=== PATIENT | female | born 1950 | race Caucasian/White ===

== ENCOUNTER → 2016-12-30 | Outpatient (CLI) | payer MEDICARE, BC ==
[2016-01-29 11:00] VITALS: BP 116/60
[~2016-12-30] MED LIST: ASCO100T4 PO; ASPI-482 PO; ASPI325T8 PO; ATOR40TA59 PO; CALC500T30 PO; CHOL10002 PO; CLIN150C14 PO; CLOP75TA57 PO; DOXY100T PO; DOXY50CA PO; HYDR-2762 PO; LISI-338 PO; LORA5TAB7 PO; METO25TA4 PO; MULT1TAB97 PO; OMEG300C PO; OXYC-323 PO; PANT40TA5 PO; WARF-78 PO
[2016-12-30 08:00] LABS: ALBUMIN 3.5 g/dL (3.4-5.0); CALCIUM 9.2 mg/dL (8.5-10.1); CREATININE 0.9 mg/dL (0.6-1.0); DIRECT BILIRUBIN 0.2 mg/dL (0.0-0.2); GFR 62.8; POTASSIUM 4.4 mmol/L (3.5-5.1); TOTAL BILIRUBIN 0.5 mg/dL (0.2-1.0); TOTAL PROTEIN 6.5 g/dL (6.4-8.2)
[2016-12-30 08:02] LABS: CHOLESTEROL/HDL RATIO 3.2
== END | disposition home or self-care (01) ==
LOC: LAB 07:15
PROVIDERS: ATTEND Internal Medicine Cardiovascular Disease
DX: I25.10 Atherosclerotic heart disease of native coronary artery without angina pectoris (principal); I10 Essential (primary) hypertension
CPT/HCPCS: 36415; 80048; 80061; 80076

== ENCOUNTER 2017-09-20 15:50 | Inpatient (IN) | payer MEDICARE, BC ==
[2017-09-20 16:23] LABS: ADD MAN DIFF? NO
[2017-09-20 16:25] LABS: BASO # 0.1 x10^3/uL (0.0-0.2); BASO % 1 % (0-3); EOS # 0.1 x10^3/uL (0.0-0.7); EOS % 1 % (0-3); HEMATOCRIT 34.6 % (36.0-47.0); HEMOGLOBIN 11.6 g/dL (12.0-15.5); LYMPH # 1.4 x10^3/uL (1.0-4.8); LYMPH % 12 % (24-48); MEAN CORPUSCULAR HEMOGLOBIN 31 pg (25-35); MEAN CORPUSCULAR HGB CONC 34 g/dL (31-37); MEAN CORPUSCULAR VOLUME 92 fL (79-100); MONO # 0.6 x10^3/uL (0.0-1.1); MONO % 5 % (0-9); NEUT # 9.9 x10^3uL (1.8-7.7); NEUT % 81 % (31-73); PLATELET COUNT 239 x10^3/uL (140-400); RED BLOOD COUNT 3.77 x10^6/uL (3.50-5.40); RED CELL DISTRIBUTION WIDTH 13.8 % (11.5-14.5); WHITE BLOOD COUNT 12.2 x10^3/uL (4.0-11.0)
[2017-09-20] MEDS: ONDANSETRON PF 4 MG/2 ML VIAL. IV ×2 (16:26→17:02)
[2017-09-20] MEDS: fentaNYL PF VIAL 100 MCG/2 ML VIAL IV (16:28)
[2017-09-20 16:32] LABS: ANION GAP 13 (6-14); BLOOD UREA NITROGEN 20 mg/dL (7-20); CALCIUM 9.4 mg/dL (8.5-10.1); CARBON DIOXIDE 26 mmol/L (21-32); CHLORIDE 103 mmol/L (98-107); CREATININE 1.1 mg/dL (0.6-1.0); GFR 49.8; GLUCOSE 161 mg/dL (70-99); POTASSIUM 3.4 mmol/L (3.5-5.1); SODIUM 142 mmol/L (136-145)
[2017-09-20] MEDS ORDERED: ACETAMINOPHEN 325 MG TABLET. PO (17:00)
[2017-09-20] MEDS ORDERED: MORPHINE SULFATE 4 MG/ML DISP.SYRIN. IV (17:00)
[2017-09-20] MEDS ORDERED: DEXTROSE 50% 25 GM / 50ML DISP.SYRIN. IV (17:00)
[2017-09-20] MEDS ORDERED: oxyCODONE/APAP 5/325 1 TAB TABLET PO (17:00)
[2017-09-20] MEDS ORDERED: ONDANSETRON PF 4 MG/2 ML VIAL. IV (17:00)
[2017-09-20] MEDS ORDERED: DOCUSATE SODIUM 100 MG CAPSULE. PO (17:00)
[2017-09-20] MEDS ORDERED: traMADol 50 MG TABLET PO (17:00)
[2017-09-20] MEDS ORDERED: INSULIN ASPART 300 UNITS/3 ML INSULN.PEN SQ (17:00)
[2017-09-20] MEDS ORDERED: hydrALAZINE 20 MG/ML VIAL. IVP (17:00)
[2017-09-20] MEDS: MORPHINE SULFATE 4 MG/ML DISP.SYRIN. IV ×2 (17:05→22:52)
[2017-09-20] MEDS: MORPHINE SULFATE 10 MG/ML VIAL. IV (18:29)
[2017-09-20] MEDS: HEPARIN PF for SUB-Q USE 5,000 UNIT/0.5 ML VIAL. SQ (22:00)
[2017-09-21] MEDS: MORPHINE SULFATE 4 MG/ML DISP.SYRIN. IV ×4 (04:01→15:33)
[2017-09-21] MEDS: HEPARIN PF for SUB-Q USE 5,000 UNIT/0.5 ML VIAL. SQ ×2 (05:04→14:00)
[2017-09-21 06:36] LABS: ADD MAN DIFF? NO
[2017-09-21 06:47] LABS: BASO % 0 % (0-3); EOS % 0 % (0-3); HEMATOCRIT 30.8 % (36.0-47.0); HEMOGLOBIN 10.4 g/dL (12.0-15.5); LYMPH # 0.8 x10^3/uL (1.0-4.8); LYMPH % 8 % (24-48); MEAN CORPUSCULAR HEMOGLOBIN 32 pg (25-35); MEAN CORPUSCULAR HGB CONC 34 g/dL (31-37); MEAN CORPUSCULAR VOLUME 93 fL (79-100); MONO # 0.9 x10^3/uL (0.0-1.1); MONO % 8 % (0-9); NEUT # 8.8 x10^3uL (1.8-7.7); NEUT % 83 % (31-73); PLATELET COUNT 239 x10^3/uL (140-400); RED CELL DISTRIBUTION WIDTH 13.5 % (11.5-14.5); WHITE BLOOD COUNT 10.6 x10^3/uL (4.0-11.0)
[2017-09-21 07:11] LABS: ALBUMIN 3.5 g/dL (3.4-5.0); ALK PHOS 83 U/L (46-116); ALT (SGPT) 23 U/L (14-59); ANION GAP 11 (6-14); AST (SGOT) 18 U/L (15-37); BLOOD UREA NITROGEN 31 mg/dL (7-20); BUN/CREATININE RATIO 18 (6-20); CALCIUM 8.7 mg/dL (8.5-10.1); CARBON DIOXIDE 27 mmol/L (21-32); CHLORIDE 103 mmol/L (98-107); CREATININE 1.7 mg/dL (0.6-1.0); GFR 30.2; GLUCOSE 157 mg/dL (70-99); SODIUM 141 mmol/L (136-145); TOTAL BILIRUBIN 0.6 mg/dL (0.2-1.0)
[2017-09-21 07:12] LABS: POTASSIUM 4.3 mmol/L (3.5-5.1)
[2017-09-21] MEDS: PANTOPRAZOLE 40 MG TABLET.DR. PO (11:30)
[2017-09-21] MEDS ORDERED: oxyCODONE/APAP 5/325 1 TAB TABLET PO (11:30)
[2017-09-21] MEDS: CALCIUM CARBONATE 500 MG TABLET PO (12:00)
[2017-09-21] MEDS: MULTIVITAMIN with MINERAL TABLET. PO (12:00)
[2017-09-21] MEDS: ASPIRIN 325 MG TABLET PO ×2 (12:00→21:00)
[2017-09-21] MEDS: CHOLECALCIFEROL (VITAMIN D3) 1,000 UNIT TABLET PO (12:00)
[2017-09-21] MEDS: ASCORBIC ACID 500 MG TABLET PO (12:00)
[2017-09-21] MEDS: CLOPIDOGREL BISULFATE 75 MG TABLET PO (12:00)
[2017-09-21] MEDS: IV NORMAL SALINE 1000ML BAG 1,000 ML IV (12:35)
[2017-09-21] MEDS ORDERED: BUPIVACAINE-EPI 0.25%-1:200000 50 ML VIAL. (15:33)
[2017-09-21] MEDS: IV RINGERS,LACTATED 1000ML 1,000 ML IV (16:28)
[2017-09-21] MEDS ORDERED: fentaNYL PF VIAL 100 MCG/2 ML VIAL IV ×3 (16:30→19:15)
[2017-09-21] MEDS ORDERED: PROCHLORPERAZINE 10 MG/2 ML VIAL. IV (16:30)
[2017-09-21] MEDS ORDERED: ONDANSETRON PF 4 MG/2 ML VIAL. IV (16:30)
[2017-09-21] MEDS ORDERED: LIDOCAINE 1% PF 2 ML VIAL. ID (16:30)
[2017-09-21] MEDS ORDERED: ceFAZolin SODIUM 3 GM in IV DEXTROSE 5% 100 ML IV (16:35)
[2017-09-21] MEDS ORDERED: fentaNYL PF VIAL 100 MCG/2 ML VIAL (16:44)
[2017-09-21] MEDS ORDERED: SUCCINYLCHOLINE 200 MG/10 ML VIAL. (16:44)
[2017-09-21] MEDS ORDERED: SEVOFLURANE 31 TO 60 MINUTES. IH (16:45)
[2017-09-21] MEDS ORDERED: DEXAMETHASONE SOD PHOS 20 MG/5 ML VIAL. (16:45)
[2017-09-21] MEDS ORDERED: MORPHINE SULFATE 4 MG/ML DISP.SYRIN. IV ×3 (16:45→19:15)
[2017-09-21] MEDS ORDERED: ONDANSETRON PF 4 MG/2 ML VIAL. (16:45)
[2017-09-21] MEDS ORDERED: PROPOFOL 20 ML IV (16:49)
[2017-09-21] MEDS ORDERED: FAMOTIDINE 20 MG/2 ML VIAL (16:49)
[2017-09-21] MEDS ORDERED: PHENYLEPHRINE in 0.9% NACL PF 1 MG/10 ML SYRINGE. IV (17:13)
[2017-09-21] MEDS ORDERED: SEVOFLURANE 61 TO 120 MINUTES. IH (17:13)
[2017-09-21] MEDS: ceFAZolin SODIUM 3 GM in IV DEXTROSE 5% 100 ML IV (17:22)
[2017-09-21] MEDS: BUPIVACAINE-EPI 0.25%-1:200000 50 ML VIAL. INJ (17:32)
[2017-09-21] MEDS ORDERED: oxyCODONE IR 5 MG TABLET PO (19:15)
[2017-09-21] MEDS ORDERED: DEXTROSE 50% 25 GM / 50ML DISP.SYRIN. IV (19:15)
[2017-09-21] MEDS: ONDANSETRON PF 4 MG/2 ML VIAL. IV (20:17)
[2017-09-21] MEDS: ATORVASTATIN CALCIUM 40 MG TABLET. PO (21:00)
[2017-09-21 21:03] LABS: POC GLUCOSE 175 mg/dL (70-99)
[2017-09-22] MEDS: ceFAZolin SODIUM 3 GM in IV DEXTROSE 5% 100 ML IV ×3 (00:10→15:44)
[2017-09-22] MEDS: IV NORMAL SALINE 1000ML BAG 1,000 ML IV ×3 (00:10→16:01)
[2017-09-22] MEDS: IV NORMAL SALINE 500ML BAG 500 ML IV ×2 (00:11→08:45)
[2017-09-22 05:41] LABS: BASO % 0 % (0-3); EOS % 0 % (0-3); HEMATOCRIT 25.6 % (36.0-47.0); HEMOGLOBIN 8.5 g/dL (12.0-15.5); LYMPH # 0.8 x10^3/uL (1.0-4.8); LYMPH % 6 % (24-48); MEAN CORPUSCULAR HEMOGLOBIN 31 pg (25-35); MEAN CORPUSCULAR HGB CONC 33 g/dL (31-37); MEAN CORPUSCULAR VOLUME 93 fL (79-100); MONO # 0.8 x10^3/uL (0.0-1.1); MONO % 6 % (0-9); NEUT % 87 % (31-73); PLATELET COUNT 189 x10^3/uL (140-400); RED BLOOD COUNT 2.75 x10^6/uL (3.50-5.40); RED CELL DISTRIBUTION WIDTH 13.5 % (11.5-14.5); WHITE BLOOD COUNT 12.7 x10^3/uL (4.0-11.0)
[2017-09-22 05:51] LABS: ANION GAP 10 (6-14); BLOOD UREA NITROGEN 48 mg/dL (7-20); CALCIUM 7.8 mg/dL (8.5-10.1); CARBON DIOXIDE 25 mmol/L (21-32); CHLORIDE 104 mmol/L (98-107); CREATININE 2.2 mg/dL (0.6-1.0); GFR 22.4; GLUCOSE 172 mg/dL (70-99); POTASSIUM 4.4 mmol/L (3.5-5.1); SODIUM 139 mmol/L (136-145)
[2017-09-22 05:59] LABS: ADD MAN DIFF? YES
[2017-09-22] MEDS ORDERED: MAGNESIUM HYDROXIDE 2,400 MG/30 ML ORAL.SUSP. PO (06:00)
[2017-09-22] MEDS ORDERED: METOPROLOL TART IMMED RELEASE 25 MG TABLET. PO (09:00)
[2017-09-22 09:01] LABS: % LYMPHS 3 % (24-48); % MONOS 7 % (0-10); % SEGS 90 % (35-66); PLT ESTIMATE ADEQUATE (ADEQUATE)
[2017-09-22 09:02] LABS: HYPOCHROMIA SLIGHT
[2017-09-22] MEDS: CLOPIDOGREL BISULFATE 75 MG TABLET PO (09:46)
[2017-09-22] MEDS: PANTOPRAZOLE 40 MG TABLET.DR. PO (09:47)
[2017-09-22] MEDS: MULTIVITAMIN with MINERAL TABLET. PO (09:47)
[2017-09-22] MEDS: SENNOSIDES/DOCUSATE 8.6/50MG TABLET. PO (09:47)
[2017-09-22] MEDS: CHOLECALCIFEROL (VITAMIN D3) 1,000 UNIT TABLET PO (09:47)
[2017-09-22] MEDS: ASPIRIN 325 MG TABLET PO ×2 (09:47→21:35)
[2017-09-22] MEDS: CALCIUM CARBONATE 500 MG TABLET PO (09:47)
[2017-09-22] MEDS: ASCORBIC ACID 500 MG TABLET PO (09:48)
[2017-09-22] MEDS ORDERED: CALCIUM CARBONATE 500 MG TAB.CHEW PO (12:45)
[2017-09-22] MEDS: CALCIUM CARBONATE 500 MG TAB.CHEW PO (12:51)
[2017-09-22] MEDS: HYDROcodone/APAP 7.5/325MG 1 TAB TABLET PO ×3 (12:52→21:35)
[2017-09-22 13:26] LABS: BILIRUBIN,URINE NEGATIVE (NEG); CLARITY,URINE CLEAR; COLOR,URINE YELLOW; GLUCOSE,URINE NEGATIVE (NEG); NITRITE,URINE NEGATIVE (NEG); PH,URINE 5.5; PROTEIN,URINE NEGATIVE (NEG-TRACE); UROBILINOGEN,URINE 0.2 mg/dL (0.2 mg/dL)
[2017-09-22 13:37] LABS: BACTERIA,URINE FEW /HPF (0-FEW); SQUAMOUS EPITHELIAL CELL,UR FEW /LPF
[2017-09-22 13:38] LABS: YEAST,URINE PRESENT /HPF
[2017-09-22 14:30] LABS: LACTIC ACID 1.8 mmol/L (0.4-2.0)
[2017-09-22 14:33] LABS: TROPONINI < 0.017 ng/mL (0.000-0.055)
[2017-09-22] MEDS ORDERED: BISACODYL 10 MG SUPP.RECT. PR (16:00)
[2017-09-22] MEDS: ATORVASTATIN CALCIUM 40 MG TABLET. PO (21:35)
[2017-09-23] MEDS: IV NORMAL SALINE 1000ML BAG 1,000 ML IV ×4 (03:18→22:13)
[2017-09-23] MEDS: HYDROcodone/APAP 7.5/325MG 1 TAB TABLET PO ×2 (03:21→09:25)
[2017-09-23 05:21] LABS: ADD MAN DIFF? NO
[2017-09-23 05:30] LABS: BASO # 0.1 x10^3/uL (0.0-0.2); BASO % 1 % (0-3); EOS # 0.1 x10^3/uL (0.0-0.7); EOS % 1 % (0-3); HEMOGLOBIN 7.1 g/dL (12.0-15.5); LYMPH # 1.6 x10^3/uL (1.0-4.8); LYMPH % 16 % (24-48); MEAN CORPUSCULAR HEMOGLOBIN 32 pg (25-35); MEAN CORPUSCULAR HGB CONC 35 g/dL (31-37); MEAN CORPUSCULAR VOLUME 93 fL (79-100); MONO # 0.9 x10^3/uL (0.0-1.1); MONO % 9 % (0-9); NEUT # 7.2 x10^3uL (1.8-7.7); NEUT % 73 % (31-73); PLATELET COUNT 150 x10^3/uL (140-400); RED CELL DISTRIBUTION WIDTH 13.8 % (11.5-14.5); WHITE BLOOD COUNT 9.8 x10^3/uL (4.0-11.0)
[2017-09-23 05:37] LABS: HEMATOCRIT 20.4 % (36.0-47.0)
[2017-09-23 05:38] LABS: ANION GAP 8 (6-14); BLOOD UREA NITROGEN 53 mg/dL (7-20); CALCIUM 7.5 mg/dL (8.5-10.1); CARBON DIOXIDE 25 mmol/L (21-32); CHLORIDE 105 mmol/L (98-107); CREATININE 1.8 mg/dL (0.6-1.0); GFR 28.2; GLUCOSE 140 mg/dL (70-99); POTASSIUM 3.7 mmol/L (3.5-5.1); SODIUM 138 mmol/L (136-145)
[2017-09-23] MEDS: CLOPIDOGREL BISULFATE 75 MG TABLET PO (09:03)
[2017-09-23] MEDS: ASPIRIN 325 MG TABLET PO ×2 (09:03→20:57)
[2017-09-23] MEDS: CALCIUM CARBONATE 500 MG TABLET PO (09:03)
[2017-09-23] MEDS: MULTIVITAMIN with MINERAL TABLET. PO (09:04)
[2017-09-23] MEDS: ASCORBIC ACID 500 MG TABLET PO (09:04)
[2017-09-23] MEDS: SENNOSIDES/DOCUSATE 8.6/50MG TABLET. PO (09:04)
[2017-09-23] MEDS: PANTOPRAZOLE 40 MG TABLET.DR. PO (09:04)
[2017-09-23] MEDS: CHOLECALCIFEROL (VITAMIN D3) 1,000 UNIT TABLET PO (09:05)
[2017-09-23] MEDS: IRON SUCROSE COMPLEX 200 MG in IV NORMAL SALINE 100ML 100 ML IV (13:01)
[2017-09-23] MEDS: ATORVASTATIN CALCIUM 40 MG TABLET. PO (20:57)
[2017-09-24 05:32] LABS: ADD MAN DIFF? NO
[2017-09-24 05:53] LABS: BASO # 0.1 x10^3/uL (0.0-0.2); BASO % 1 % (0-3); EOS # 0.2 x10^3/uL (0.0-0.7); EOS % 3 % (0-3); LYMPH # 1.3 x10^3/uL (1.0-4.8); LYMPH % 15 % (24-48); MEAN CORPUSCULAR HEMOGLOBIN 32 pg (25-35); MEAN CORPUSCULAR HGB CONC 33 g/dL (31-37); MEAN CORPUSCULAR VOLUME 95 fL (79-100); MONO # 0.8 x10^3/uL (0.0-1.1); MONO % 9 % (0-9); NEUT # 6.3 x10^3uL (1.8-7.7); NEUT % 73 % (31-73); PLATELET COUNT 152 x10^3/uL (140-400); RED BLOOD COUNT 2.14 x10^6/uL (3.50-5.40); WHITE BLOOD COUNT 8.7 x10^3/uL (4.0-11.0)
[2017-09-24 05:57] LABS: HEMATOCRIT 20.4 % (36.0-47.0); HEMOGLOBIN 6.8 g/dL (12.0-15.5)
[2017-09-24 05:59] LABS: ANION GAP 11 (6-14); BLOOD UREA NITROGEN 45 mg/dL (7-20); CALCIUM 7.9 mg/dL (8.5-10.1); CARBON DIOXIDE 23 mmol/L (21-32); CHLORIDE 109 mmol/L (98-107); CREATININE 1.3 mg/dL (0.6-1.0); GFR 41.1; GLUCOSE 118 mg/dL (70-99); POTASSIUM 3.9 mmol/L (3.5-5.1); SODIUM 143 mmol/L (136-145)
[2017-09-24] MEDS: HYDROcodone/APAP 7.5/325MG 1 TAB TABLET PO ×3 (06:18→19:37)
[2017-09-24] MEDS: IV NORMAL SALINE 1000ML BAG 1,000 ML IV (06:19)
[2017-09-24 12:11] LABS: IMMEDIATE SPIN CROSSMATCH 1 1
[2017-09-24] MEDS: MULTIVITAMIN with MINERAL TABLET. PO (12:27)
[2017-09-24] MEDS: CALCIUM CARBONATE 500 MG TABLET PO (12:27)
[2017-09-24] MEDS: PANTOPRAZOLE 40 MG TABLET.DR. PO (12:27)
[2017-09-24] MEDS: ASCORBIC ACID 500 MG TABLET PO (12:27)
[2017-09-24] MEDS: CHOLECALCIFEROL (VITAMIN D3) 5,000 UNIT CAPSULE PO (12:27)
[2017-09-24] MEDS: CLOPIDOGREL BISULFATE 75 MG TABLET PO (12:27)
[2017-09-24] MEDS: ASPIRIN 325 MG TABLET PO ×2 (12:27→21:33)
[2017-09-24] MEDS: SENNOSIDES/DOCUSATE 8.6/50MG TABLET. PO (12:27)
[2017-09-24] MEDS: FERROUS SULFATE 325 MG TABLET. PO (12:28)
[2017-09-24 16:58] LABS: HEMATOCRIT 22.2 % (36.0-47.0)
[2017-09-24 16:58] LABS: HEMOGLOBIN 7.5 g/dL (12.0-15.5)
[2017-09-24] MEDS: ATORVASTATIN CALCIUM 40 MG TABLET. PO (21:33)
[2017-09-25] MEDS: HYDROcodone/APAP 7.5/325MG 1 TAB TABLET PO ×3 (04:40→21:09)
[2017-09-25 05:27] LABS: ADD MAN DIFF? NO
[2017-09-25 05:41] LABS: BASO # 0.1 x10^3/uL (0.0-0.2); BASO % 1 % (0-3); EOS # 0.3 x10^3/uL (0.0-0.7); EOS % 4 % (0-3); HEMATOCRIT 21.6 % (36.0-47.0); HEMOGLOBIN 7.2 g/dL (12.0-15.5); LYMPH # 1.6 x10^3/uL (1.0-4.8); LYMPH % 19 % (24-48); MEAN CORPUSCULAR HEMOGLOBIN 31 pg (25-35); MEAN CORPUSCULAR HGB CONC 33 g/dL (31-37); MEAN CORPUSCULAR VOLUME 93 fL (79-100); MONO # 0.8 x10^3/uL (0.0-1.1); MONO % 9 % (0-9); NEUT # 5.9 x10^3uL (1.8-7.7); NEUT % 67 % (31-73); PLATELET COUNT 168 x10^3/uL (140-400); RED BLOOD COUNT 2.33 x10^6/uL (3.50-5.40); RED CELL DISTRIBUTION WIDTH 14.8 % (11.5-14.5); WHITE BLOOD COUNT 8.8 x10^3/uL (4.0-11.0)
[2017-09-25 06:07] LABS: ANION GAP 9 (6-14); BLOOD UREA NITROGEN 42 mg/dL (7-20); CALCIUM 8.1 mg/dL (8.5-10.1); CARBON DIOXIDE 25 mmol/L (21-32); CHLORIDE 109 mmol/L (98-107); CREATININE 1.1 mg/dL (0.6-1.0); GFR 49.8; GLUCOSE 121 mg/dL (70-99); POTASSIUM 3.8 mmol/L (3.5-5.1); SODIUM 143 mmol/L (136-145)
[2017-09-25] MEDS: ASPIRIN 325 MG TABLET PO ×2 (09:30→21:08)
[2017-09-25] MEDS: CHOLECALCIFEROL (VITAMIN D3) 5,000 UNIT CAPSULE PO (09:30)
[2017-09-25] MEDS: PANTOPRAZOLE 40 MG TABLET.DR. PO (09:30)
[2017-09-25] MEDS: CLOPIDOGREL BISULFATE 75 MG TABLET PO (09:30)
[2017-09-25] MEDS: SENNOSIDES/DOCUSATE 8.6/50MG TABLET. PO (09:30)
[2017-09-25] MEDS: MULTIVITAMIN with MINERAL TABLET. PO (09:31)
[2017-09-25] MEDS: ASCORBIC ACID 500 MG TABLET PO (09:31)
[2017-09-25] MEDS: FERROUS SULFATE 325 MG TABLET. PO (09:31)
[2017-09-25] MEDS: CALCIUM CARBONATE 500 MG TABLET PO (09:31)
[2017-09-25 20:46] LABS: POC GLUCOSE 128 mg/dL (70-99)
[2017-09-25] MEDS: ATORVASTATIN CALCIUM 40 MG TABLET. PO (21:08)
[2017-09-25] MEDS: ALPRAZolam 0.5 MG TABLET PO (21:08)
[2017-09-26] MEDS: ONDANSETRON PF 4 MG/2 ML VIAL. IV (07:43)
[2017-09-26] MEDS: HYDROcodone/APAP 7.5/325MG 1 TAB TABLET PO ×3 (07:43→21:08)
[2017-09-26] MEDS: SENNOSIDES/DOCUSATE 8.6/50MG TABLET. PO (09:43)
[2017-09-26] MEDS: MULTIVITAMIN with MINERAL TABLET. PO (09:43)
[2017-09-26] MEDS: CLOPIDOGREL BISULFATE 75 MG TABLET PO (09:43)
[2017-09-26] MEDS: ASPIRIN 325 MG TABLET PO ×2 (09:43→21:07)
[2017-09-26] MEDS: PANTOPRAZOLE 40 MG TABLET.DR. PO (09:43)
[2017-09-26] MEDS: FERROUS SULFATE 325 MG TABLET. PO (09:43)
[2017-09-26] MEDS: ASCORBIC ACID 500 MG TABLET PO (09:43)
[2017-09-26] MEDS: CALCIUM CARBONATE 500 MG TABLET PO (09:43)
[2017-09-26] MEDS: POLYETHYLENE GLYCOL 3350 17 GM PACKET. PO (09:43)
[2017-09-26 09:45] LABS: ADD MAN DIFF? NO
[2017-09-26] MEDS: CHOLECALCIFEROL (VITAMIN D3) 5,000 UNIT CAPSULE PO (09:47)
[2017-09-26 09:59] LABS: BASO # 0.1 x10^3/uL (0.0-0.2); BASO % 1 % (0-3); EOS # 0.3 x10^3/uL (0.0-0.7); EOS % 3 % (0-3); HEMOGLOBIN 7.5 g/dL (12.0-15.5); LYMPH # 1.1 x10^3/uL (1.0-4.8); LYMPH % 11 % (24-48); MEAN CORPUSCULAR HEMOGLOBIN 32 pg (25-35); MEAN CORPUSCULAR HGB CONC 34 g/dL (31-37); MEAN CORPUSCULAR VOLUME 94 fL (79-100); MONO # 0.7 x10^3/uL (0.0-1.1); MONO % 7 % (0-9); NEUT # 7.9 x10^3uL (1.8-7.7); NEUT % 79 % (31-73); PLATELET COUNT 191 x10^3/uL (140-400); RED BLOOD COUNT 2.34 x10^6/uL (3.50-5.40); RED CELL DISTRIBUTION WIDTH 14.7 % (11.5-14.5)
[2017-09-26 10:09] LABS: ANION GAP 10 (6-14); BLOOD UREA NITROGEN 37 mg/dL (7-20); CALCIUM 8.1 mg/dL (8.5-10.1); CARBON DIOXIDE 24 mmol/L (21-32); CHLORIDE 109 mmol/L (98-107); GFR 55.6; GLUCOSE 153 mg/dL (70-99); POTASSIUM 3.9 mmol/L (3.5-5.1); SODIUM 143 mmol/L (136-145)
[2017-09-26] MEDS: IV NORMAL SALINE 1000ML BAG 1,000 ML IV (11:05)
[2017-09-26] MEDS: ALPRAZolam 0.5 MG TABLET PO (21:07)
[2017-09-26] MEDS: ATORVASTATIN CALCIUM 40 MG TABLET. PO (21:07)
[2017-09-27] MEDS: HYDROcodone/APAP 7.5/325MG 1 TAB TABLET PO ×4 (06:08→21:13)
[2017-09-27] MEDS: CLOPIDOGREL BISULFATE 75 MG TABLET PO (11:03)
[2017-09-27] MEDS: CHOLECALCIFEROL (VITAMIN D3) 5,000 UNIT CAPSULE PO (11:03)
[2017-09-27] MEDS: ASCORBIC ACID 500 MG TABLET PO (11:04)
[2017-09-27] MEDS: CALCIUM CARBONATE 500 MG TABLET PO (11:04)
[2017-09-27] MEDS: PANTOPRAZOLE 40 MG TABLET.DR. PO (11:04)
[2017-09-27] MEDS: MULTIVITAMIN with MINERAL TABLET. PO (11:04)
[2017-09-27] MEDS: FERROUS SULFATE 325 MG TABLET. PO (11:05)
[2017-09-27] MEDS: SENNOSIDES/DOCUSATE 8.6/50MG TABLET. PO (11:05)
[2017-09-27] MEDS: BISACODYL 10 MG SUPP.RECT. PR (11:11)
[2017-09-27] MEDS: ASPIRIN 325 MG TABLET PO ×2 (11:11→21:13)
[2017-09-27] MEDS: MAGNESIUM HYDROXIDE 2,400 MG/30 ML ORAL.SUSP. PO (17:05)
[2017-09-27] MEDS: IRON POLYSACCHARIDE COMPLEX 150 MG CAPSULE PO (17:05)
[2017-09-27] MEDS: ALPRAZolam 0.5 MG TABLET PO (17:19)
[2017-09-27] MEDS: ATORVASTATIN CALCIUM 40 MG TABLET. PO (21:13)
[2017-09-28] MEDS: PANTOPRAZOLE 40 MG TABLET.DR. PO (10:22)
[2017-09-28] MEDS: CLOPIDOGREL BISULFATE 75 MG TABLET PO (10:22)
[2017-09-28] MEDS: FERROUS SULFATE 325 MG TABLET. PO (10:22)
[2017-09-28] MEDS: ASPIRIN 325 MG TABLET PO ×2 (10:23→20:48)
[2017-09-28] MEDS: MULTIVITAMIN with MINERAL TABLET. PO (10:23)
[2017-09-28] MEDS: SENNOSIDES/DOCUSATE 8.6/50MG TABLET. PO (10:23)
[2017-09-28] MEDS: ALPRAZolam 0.5 MG TABLET PO ×2 (10:23→16:17)
[2017-09-28] MEDS: CALCIUM CARBONATE 500 MG TABLET PO (10:23)
[2017-09-28] MEDS: CHOLECALCIFEROL (VITAMIN D3) 5,000 UNIT CAPSULE PO (10:24)
[2017-09-28] MEDS: ASCORBIC ACID 500 MG TABLET PO (10:24)
[2017-09-28] MEDS: HYDROcodone/APAP 7.5/325MG 1 TAB TABLET PO ×3 (10:25→20:49)
[2017-09-28] MEDS: IRON POLYSACCHARIDE COMPLEX 150 MG CAPSULE PO (10:25)
[2017-09-28] MEDS: MAGNESIUM CITRATE 296 ML SOLUTION. PO (16:18)
[2017-09-28] MEDS: ATORVASTATIN CALCIUM 40 MG TABLET. PO (20:48)
[2017-09-29] MEDS: FERROUS SULFATE 325 MG TABLET. PO (08:15)
[2017-09-29] MEDS: SENNOSIDES/DOCUSATE 8.6/50MG TABLET. PO (09:00)
[2017-09-29] MEDS: CHOLECALCIFEROL (VITAMIN D3) 5,000 UNIT CAPSULE PO (09:28)
[2017-09-29] MEDS: ASCORBIC ACID 500 MG TABLET PO (09:30)
[2017-09-29] MEDS: ASPIRIN 325 MG TABLET PO (09:31)
[2017-09-29] MEDS: CLOPIDOGREL BISULFATE 75 MG TABLET PO (09:31)
[2017-09-29] MEDS: IRON POLYSACCHARIDE COMPLEX 150 MG CAPSULE PO (09:32)
[2017-09-29] MEDS: CALCIUM CARBONATE 500 MG TABLET PO (09:32)
[2017-09-29] MEDS: MULTIVITAMIN with MINERAL TABLET. PO (09:32)
[2017-09-29] MEDS: PANTOPRAZOLE 40 MG TABLET.DR. PO (09:32)
== END 2017-09-29 15:30 | DRG 480 ==
LOC: ER 15:50 → 4 NORTH 16:30
PROC: 0QS806Z Reposition Right Femoral Shaft with Intramedullary Internal Fixation Device, Open Approach (ICD-10-PCS; principal; 2017-09-21 16:58)
PROC: 30233N1 Transfusion of Nonautologous Red Blood Cells into Peripheral Vein, Percutaneous Approach (ICD-10-PCS; 2017-09-21 16:58)
DX: M97.11XA Periprosthetic fracture around internal prosthetic right knee joint, initial encounter (principal); N17.0 Acute kidney failure with tubular necrosis; J96.91 Respiratory failure, unspecified with hypoxia; S72.321A Displaced transverse fracture of shaft of right femur, initial encounter for closed fracture; Z68.43 Body mass index [BMI] 50.0-59.9, adult; J90 Pleural effusion, not elsewhere classified; E66.01 Morbid (severe) obesity due to excess calories; W10.9XXA Fall (on) (from) unspecified stairs and steps, initial encounter; W18.39XA Other fall on same level, initial encounter; D64.9 Anemia, unspecified; E61.1 Iron deficiency; E78.00 Pure hypercholesterolemia, unspecified; E78.5 Hyperlipidemia, unspecified; I25.10 Atherosclerotic heart disease of native coronary artery without angina pectoris; K59.00 Constipation, unspecified; Y93.01 Activity, walking, marching and hiking; Z82.49 Family history of ischemic heart disease and other diseases of the circulatory system; Z96.653 Presence of artificial knee joint, bilateral; Z90.49 Acquired absence of other specified parts of digestive tract; Z98.49 Cataract extraction status, unspecified eye; Z88.2 Allergy status to sulfonamides; Y93.89 Activity, other specified; Y92.89 Other specified places as the place of occurrence of the external cause; Y99.8 Other external cause status
CPT/HCPCS: 29505; 36415; 51702; 70450; 70486; 71045; 72170; 73552; 73560; 73590; 76000; 80048; 80053; 81001; 82306; 82962; 83605; 84484; 85007; 85014; 85018; 85025; 86850; 86900; 86901; 86920; 87040; 93005; 96374; 96375; 96376; 97110-GO; 97110-GP; 97162-GP; 97166-GO; 97530-GO; 97530-GP; 97535-GO; 99285-25; C1713; J0330; J0690; J1100; J1756; J1815; J2270; J2370; J2405; J2704; J3010; J7030; J7040; J7120; P9016; S0028

== ENCOUNTER → 2017-11-20 | Outpatient (CLI) | payer MEDICARE, BC ==
[2017-11-20] MEDS: GADOBUTROL 7.5 MMOL/7.5 ML VIAL IV ×2 (15:12)
== END | disposition home or self-care (01) ==
LOC: KCIC MRI 13:39
DX: C31.3 Malignant neoplasm of sphenoid sinus (principal); H49.21 Sixth [abducent] nerve palsy, right eye; Z79.01 Long term (current) use of anticoagulants
CPT/HCPCS: 70553; A9585

== ENCOUNTER → 2017-11-29 | Outpatient (CLI) | payer MEDICARE, BC ==
[2017-11-29] MEDS: GADOBUTROL 7.5 MMOL/7.5 ML VIAL IV ×2 (11:00)
== END | disposition home or self-care (01) ==
LOC: MRI 08:59
DX: M48.54XA Collapsed vertebra, not elsewhere classified, thoracic region, initial encounter for fracture (principal); M40.294 Other kyphosis, thoracic region; M48.04 Spinal stenosis, thoracic region; M48.061 Spinal stenosis, lumbar region without neurogenic claudication; M25.78 Osteophyte, vertebrae; M51.37 Other intervertebral disc degeneration, lumbosacral region; M50.323 Other cervical disc degeneration at C6-C7 level; G93.9 Disorder of brain, unspecified
CPT/HCPCS: 72156; 72157; 72158; A9585

== ENCOUNTER 2017-12-04 06:48 | Outpatient (CLI) | payer MEDICARE, BC ==
[2017-12-04 07:43] LABS: INR 1.2 (0.8-1.1); PROTHROMBIN TIME PATIENT 14.5 SEC (11.7-14.0)
[2017-12-04 07:59] LABS: BASO % 0 % (0-3); EOS % 0 % (0-3); HEMATOCRIT 30.2 % (36.0-47.0); HEMOGLOBIN 9.9 g/dL (12.0-15.5); LYMPH # 0.9 x10^3/uL (1.0-4.8); LYMPH % 9 % (24-48); MEAN CORPUSCULAR HEMOGLOBIN 30 pg (25-35); MEAN CORPUSCULAR HGB CONC 33 g/dL (31-37); MEAN CORPUSCULAR VOLUME 92 fL (79-100); MONO # 0.4 x10^3/uL (0.0-1.1); MONO % 5 % (0-9); NEUT # 8.4 x10^3uL (1.8-7.7); NEUT % 86 % (31-73); PLATELET COUNT 175 x10^3/uL (140-400); WHITE BLOOD COUNT 9.8 x10^3/uL (4.0-11.0)
[2017-12-04 08:02] LABS: ADD MAN DIFF? YES
[2017-12-04] MEDS ORDERED: NALOXONE 0.4 MG/ML VIAL. (08:03)
[2017-12-04] MEDS ORDERED: FLUMAZENIL 0.5 MG/5 ML VIAL. IV (08:03)
[2017-12-04] MEDS ORDERED: fentaNYL PF VIAL 100 MCG/2 ML VIAL (08:03)
[2017-12-04] MEDS ORDERED: LIDOCAINE WITH 8.4% SOD BICARB 3 ML DISP.SYRIN. (08:04)
[2017-12-04] MEDS: fentaNYL PF VIAL 100 MCG/2 ML VIAL IV (08:56)
[2017-12-04] MEDS: LIDOCAINE WITH 8.4% SOD BICARB 3 ML DISP.SYRIN. IJ (08:56)
[2017-12-04] MEDS: MIDAZOLAM HCL/PF 2 MG/2 ML VIAL. IV (08:57)
[2017-12-04 09:53] LABS: % BASOS 1 % (0-3); % LYMPHS 11 % (24-48); % MONOS 4 % (0-10); % SEGS 84 % (35-66)
[2017-12-04 09:54] LABS: ANISOCYTOSIS PRESENT; PLT ESTIMATE ADEQUATE (ADEQUATE)
== END 2017-12-04 10:20 | disposition home or self-care (01) ==
LOC: INTRAD 06:48
DX: M89.9 Disorder of bone, unspecified (principal); D71 Functional disorders of polymorphonuclear neutrophils; I13.0 Hypertensive heart and chronic kidney disease with heart failure and stage 1 through stage 4 chronic kidney disease, or unspecified chronic kidney disease; N18.3 Chronic kidney disease, stage 3 (moderate); I50.33 Acute on chronic diastolic (congestive) heart failure; I25.10 Atherosclerotic heart disease of native coronary artery without angina pectoris; E66.01 Morbid (severe) obesity due to excess calories; Z68.42 Body mass index [BMI] 45.0-49.9, adult; K21.9 Gastro-esophageal reflux disease without esophagitis; E78.5 Hyperlipidemia, unspecified; C18.9 Malignant neoplasm of colon, unspecified; C79.00 Secondary malignant neoplasm of unspecified kidney and renal pelvis; C79.51 Secondary malignant neoplasm of bone; C79.31 Secondary malignant neoplasm of brain; I25.2 Old myocardial infarction; M19.90 Unspecified osteoarthritis, unspecified site; E11.9 Type 2 diabetes mellitus without complications; J43.9 Emphysema, unspecified; C78.39 Secondary malignant neoplasm of other respiratory organs; Z79.01 Long term (current) use of anticoagulants; Z79.82 Long term (current) use of aspirin; Z79.899 Other long term (current) drug therapy; Z88.1 Allergy status to other antibiotic agents; Z88.2 Allergy status to sulfonamides; Z90.49 Acquired absence of other specified parts of digestive tract; Z98.42 Cataract extraction status, left eye; Z98.41 Cataract extraction status, right eye; Z95.1 Presence of aortocoronary bypass graft; Z79.4 Long term (current) use of insulin; Z96.659 Presence of unspecified artificial knee joint; Z80.1 Family history of malignant neoplasm of trachea, bronchus and lung; Z80.41 Family history of malignant neoplasm of ovary; Z83.6 Family history of other diseases of the respiratory system; Z82.49 Family history of ischemic heart disease and other diseases of the circulatory system
CPT/HCPCS: 20220; 36415; 77012; 85007; 85025; 85610; 88184; 88185; 88307; 88341; 88342; 88364; 88365; 99152; 99153; J2250; J3010